=== PATIENT | female | born 1945 | race Hispanic/Latino ===

== ENCOUNTER 2018-07-06 18:20 | Outpatient (CLI) | payer MEDICARE, BC | END 2018-07-06 18:21 | disposition home or self-care (01) | LOC: CARDIO 18:20 ==

== ENCOUNTER 2018-07-09 10:15 | Outpatient (CLI) | payer MEDICARE, BC | END 2018-07-09 10:16 | disposition home or self-care (01) | LOC: LAB 10:15 ==

== ENCOUNTER 2018-08-27 08:36 | Outpatient (CLI) | payer MEDICARE, BC | END 2018-08-27 08:37 | disposition home or self-care (01) | LOC: LAB 08:36 ==